=== PATIENT | male | born 1955 ===

== ENCOUNTER 2017-01-16 21:48 | Emergency (ER) | payer MEDICAID ==
[2017-01-16 21:48] VITALS: BMI 24.6
[2017-01-16 22:16] VITALS: BP 126/74; PULSE 69; RESP 18; TEMP 98.2; O2SAT 98
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
== END 2017-01-16 23:29 | disposition home or self-care (01) ==
LOC: H.ER 21:48
DX: M54.2 Cervicalgia (principal)